=== PATIENT | female | born 1950 | race Caucasian/White ===

== ENCOUNTER 2021-12-14 15:19 | Outpatient (CLI) | payer MEDICARE, BC | END 2021-12-14 15:20 | disposition critical access hospital (66) | LOC: EMS 15:19 | DX: R62.7 Adult failure to thrive (principal); R09.89 Other specified symptoms and signs involving the circulatory and respiratory systems; Z72.89 Other problems related to lifestyle; Z91.89 Other specified personal risk factors, not elsewhere classified | CPT/HCPCS: A0425; A0429 ==

== ENCOUNTER 2021-12-14 15:49 | Emergency (ER) | payer MEDICARE, BC ==
[2021-12-14] MEDS ORDERED: THIAMINE INJ 100 MG, MAGNESIUM SULFATE 2 GM, MULTIVITAMIN 10 ML, FOLIC ACID INJ 1 MG in... IV ONE ×5 (16:01)
--- NOTE | 2021-12-14 16:24 | ED Physician Documentation ---
History of Present Illness - Stated complaint Stated Complaint: FTT - Chief complaint Chief Complaint: General - History obtained from History obtained from: Patient, EMS - Additonal information Additional information: This 71-year-old woman presents by ambulance for concerns about being able to care for herself. Reportedly her family found her today completely disheveled. There was also report the prehospital she mentioned wanting to kill herself. The patient herself says she has no suicidal ideation and just is not taking care of herself well because her dog has been sick and had to be put down yesterday. She admits to drinking and smoking heavily. She states she has no medical problems and does not see a doctor. History is slightly limited because of intoxication. Review of Systems Unable to obtain: Intoxicated PD PAST MEDICAL HISTORY - Present Medications Home Medications: Ambulatory Orders Medication Instructions Recorded Confirmed No Known Home Medications 12/14/21 12/14/21 - Allergies Allergies/Adverse Reactions: Allergies Allergy/AdvReac Type Severity Reaction Status Date / Time No Known Drug Allergies Allergy Verified 12/14/21 16:00 PD ED PE NORMAL - Vitals Vital signs reviewed: Yes - General General: Other (She has a profound smell of both urine and stool, and is very unkempt and dirty. Slightly slow to answer questions. Under the smell of urine and stool is a smell of alcohol as well.) - HEENT HEENT: PERRL, EOMI (With significant nystagmus) - Neck Neck: Supple, no meningeal sign, No bony TTP - Cardiac Cardiac: RRR, No murmur - Respiratory Respiratory: No respiratory distress, Clear bilaterally - Abdomen Abdomen: Normal bowel sounds, Soft, Non tender - Back Back: No CVA TTP, No spinal TTP - Derm Derm: Normal color, Warm and dry - Extremities Extremities: Other (She has cool feet with poor capillary refill suggestive of peripheral vascular disease.) - Neuro Eye Opening: Spontaneous Motor: Obeys Commands Verbal: Confused (Slightly) GCS Score: 14 Results - Vitals Vitals: Vital Signs - 24 hr 12/14/21 16:01 Temperature 36.5 C Heart Rate 68 Respiratory 18 Rate Blood Pressure 151/72 H O2 Saturation 99 Oxygen O2 Source Room air - Labs Labs: Laboratory Tests 12/14/21 12/14/21 12/14/21 16:40 16:40 16:40 WBC 5.7 RBC 4.56 Hgb 15.9 Hct 47.1 H MCV 103.3 H MCH 34.9 H MCHC 33.8 RDW 12.8 Plt Count 194 MPV 8.8 Neut # (Auto) 3.5 Lymph # (Auto) 1.6 [place] # (Auto) 0.4 Eos # (Auto) 0.1 Baso # (Auto) 0.1 Absolute Nucleated RBC 0.00 Nucleated RBC % 0.0 Sodium 140 Potassium 4.3 Chloride 102 Carbon Dioxide 25 Anion Gap 13.0 BUN 20 Creatinine 1.1 H Estimated GFR (MDRD) 49 L Glucose 82 Calcium 9.4 Total Bilirubin 0.5 AST 24 ALT 20 Alkaline Phosphatase 118 Total Protein 8.1 Albumin 4.5 Globulin 3.6 Albumin/Globulin Ratio 1.3 Lipase 36 TSH 1.69 Urine Color Urine Clarity Urine pH Ur Specific [place] Urine Protein Urine Glucose (UA) Urine Ketones Urine Occult Blood Urine Nitrite Urine Bilirubin Urine Urobilinogen Ur Leukocyte Esterase Urine RBC Urine WBC Ur Squamous Epith Cells Urine Bacteria Ur Microscopic Review Urine Culture Comments Salicylates < 6.0 Urine Opiates Screen Ur Oxycodone Screen Urine Methadone Screen Ur Propoxyphene Screen Acetaminophen < 10 L Ur Barbiturates Screen Ur Tricyclics Screen Ur Phencyclidine Scrn Ur Amphetamine Screen U Methamphetamines Scrn U Benzodiazepines Scrn Urine Cocaine Screen U Cannabinoids Screen Ethyl Alcohol 243.6 SARS-CoV-2 (PCR) 12/14/21 12/14/21 16:55 17:25 WBC RBC Hgb Hct MCV MCH MCHC RDW Plt Count MPV Neut # (Auto) Lymph # (Auto) [place] # (Auto) Eos # (Auto) Baso # (Auto) Absolute Nucleated RBC Nucleated RBC % Sodium Potassium Chloride Carbon Dioxide Anion Gap BUN Creatinine Estimated GFR (MDRD) Glucose Calcium Total Bilirubin AST ALT Alkaline Phosphatase Total Protein Albumin Globulin Albumin/Globulin Ratio Lipase TSH Urine Color LIGHT YELLOW Urine Clarity CLOUDY Urine pH 5.5 Ur Specific [place] <=1.005 Urine Protein TRACE Urine Glucose (UA) NEGATIVE Urine Ketones NEGATIVE Urine Occult Blood TRACE-INTA Urine Nitrite POSITIVE H Urine Bilirubin NEGATIVE Urine Urobilinogen 0.2 (NORMAL) Ur Leukocyte Esterase TRACE H Urine RBC 0-5 Urine WBC 6-10 H Ur Squamous Epith Cells RARE Squamous Urine Bacteria Many H Ur Microscopic Review INDICATED Urine Culture Comments INDICATED Salicylates Urine Opiates Screen NEGATIVE Ur Oxycodone Screen NEGATIVE Urine Methadone Screen NEGATIVE Ur Propoxyphene Screen NEGATIVE Acetaminophen Ur Barbiturates Screen NEGATIVE Ur Tricyclics Screen NEGATIVE Ur Phencyclidine Scrn NEGATIVE Ur Amphetamine Screen NEGATIVE U Methamphetamines Scrn NEGATIVE U Benzodiazepines Scrn NEGATIVE Urine Cocaine Screen NEGATIVE U Cannabinoids Screen NEGATIVE Ethyl Alcohol SARS-CoV-2 (PCR) NOT DETECTED PD MEDICAL DECISION MAKING - ED course ED course: 71-year-old woman presents by ambulance because of issues with self-care and she is also intoxicated with alcohol. Family sent along written comments including regarding her threats of suicide prior to arrival although the patient states she is not suicidal here. She was showered and labs were checked which were only notable for blood alcohol of 243. She does have pyuria which likely represents asymptomatic bacteriuria given the lack of specific urinary complaints. Patient is not cooperative with care and does not particularly want to be here. Given the aforementioned issues, will need to stay in the emergency department until sober and likely have DCR evaluate her. Care to the overnight emergency physician at shift change pending sobriety which I expect around 2 AM and DCR evaluation. Departure - Departure Clinical Impression: Alcohol intoxication, Dirty living conditions Condition: Stable Record reviewed to determine appropriate education?: Yes Instructions: ED Alcohol Intoxication
[2021-12-14 16:47] LABS: BASOPHILS # (AUTO) 0.1 10^3/uL (0.0-0.1); BASOPHILS % (AUTO) 1.2 %; EOSINOPHILS # (AUTO) 0.1 10^3/uL (0.0-0.7); EOSINOPHILS % (AUTO) 2.3 %; HCT - HEMATOCRIT 47.1 % (37.0-47.0); HGB - HEMOGLOBIN 15.9 g/dL (12.0-16.0); LYMPHOCYTES # (AUTO) 1.6 10^3/uL (1.5-3.5); LYMPHOCYTES % (AUTO) 27.2 %; MEAN CORPUSCULAR HEMOGLOBIN 34.9 pg (27.0-31.0); MEAN CORPUSCULAR HGB CONC 33.8 g/dL (32.0-36.0); MEAN CORPUSCULAR VOLUME 103.3 fL (81.0-99.0); MEAN PLATELET VOLUME 8.8 fL (7.9-10.8); MONOCYTES # (AUTO) 0.4 10^3/uL (0.0-1.0); MONOCYTES % (AUTO) 7.2 %; NEUTROPHILS # (AUTO) 3.5 10^3/uL (1.5-6.6); NEUTROPHILS % (AUTO) 61.4 %; PLT - PLATELET COUNT 194 10^3/uL (130-450); RED BLOOD COUNT 4.56 10^6/uL (4.20-5.40); RED CELL DISTRIBUTION WIDTH 12.8 % (12.0-15.0); WHITE BLOOD COUNT 5.7 x10^3/uL (4.8-10.8)
[2021-12-14 17:04] LABS: ACETAMINOPHEN < 10 ug/mL (10-30); ALBUMIN 4.5 g/dL (3.2-5.5); ALBUMIN/GLOBULIN RATIO 1.3 (1.0-2.2); ALKALINE PHOSPHATASE 118 IU/L (42-121); ALT ALANINE AMINOTRANSFERASE 20 IU/L (10-60); AST ASPARTATE AMINOTRANSFERASE 24 IU/L (10-42); BILIRUBIN,TOTAL 0.5 mg/dL (0.2-1.0); BUN - BLOOD UREA NITROGEN 20 mg/dL (6-20); CALCIUM 9.4 mg/dL (8.5-10.3); CARBON DIOXIDE - CO2 25 mmol/L (21-32); CHLORIDE 102 mmol/L (101-111); CREATININE 1.1 mg/dL (0.4-1.0); ETOH - ETHANOL 243.6 mg/dL; GFR - MDRD 49 (>89); GLUCOSE 82 mg/dL (70-100); LIPASE 36 U/L (22-51); POTASSIUM 4.3 mmol/L (3.5-5.0); SALICYLATE < 6.0 mg/dL; SODIUM 140 mmol/L (135-145); TOTAL PROTEIN 8.1 g/dL (6.7-8.2)
[2021-12-14 17:29] LABS: MUDS CUTOFF CONCENTRATIONS CUTOFF CONC BELOW:
[2021-12-14 17:36] LABS: BILIRUBIN,URINE NEGATIVE (NEGATIVE); GLUCOSE, URINE (UA) NEGATIVE (NEGATIVE); KETONES,URINE (UA) NEGATIVE (NEGATIVE); LEUKOCYTE ESTERASE, URINE TRACE (NEGATIVE); NITRITE,URINE POSITIVE (NEGATIVE); OCCULT BLOOD,URINE TRACE-INTA (NEGATIVE); PH,URINE 5.5 PH (5.0-7.5); PROTEIN,URINE TRACE mg/dL (NEGATIVE); UROBILINOGEN,URINE 0.2 (NORMAL) E.U./dL (NORMAL)
[2021-12-14 17:48] LABS: CLARITY,URINE CLOUDY (CLEAR)
[2021-12-14 17:49] LABS: BACTERIA,URINE Many /HPF (None Seen); RBC,URINE 0-5 /HPF (0-5); SQUAMOUS EPITHELIAL CELL,UR RARE Squamous (<= Few)
[2021-12-14 17:50] LABS: AMPHETAMINE SCREEN,URINE NEGATIVE (NEGATIVE); BARBITURATE SCREEN,UR NEGATIVE (NEGATIVE); BENZODIAZEPINES SCREEN, URINE NEGATIVE (NEGATIVE); COCAINE SCREEN URINE NEGATIVE (NEGATIVE); METHADONE SCREEN, URINE NEGATIVE (NEGATIVE); METHAMPHETAMINES SCREEN, URINE NEGATIVE (NEGATIVE); OPIATE SCREEN, URINE NEGATIVE (NEGATIVE); OXYCODONE SCREEN, URINE NEGATIVE (NEGATIVE); PROPOXYPHENE SCREEN, URINE NEGATIVE (NEGATIVE); THC CANNABINOID SCREEN, URINE NEGATIVE (NEGATIVE); TRICYCLIC ANTIDEPRESSANT,URINE NEGATIVE (NEGATIVE)
--- NOTE | 2021-12-15 06:10 | ED Physician Documentation ---
ED Addendum - Addendum Addendum: 12/15/21 06:00 71-year-old female presented to the emergency department yesterday evening with intoxication and some statements concerning for suicidal ideation. This morning she is sober and denies any suicidal ideation she does state that her dog was put down yesterday after a bout with liver cancer. She was not expecting her son to come to her house and when he came to her house he found her intoxicated and things were said and she ended up here. 16:57 Electrocardiogram has been done showing a rate of 69 with a sinus rhythm normal axes and intervals no evidence of ischemia. The computer does read lateral ST depression which is not present. There are no prior tracings for comparison. 12/15/21 06:10 12/15/21 06:11 At shift change her care is turned over to the oncoming ED doctor with a social work consult pending with the goal to provide a safety plan for discharge to home. 12/15/21 06:11
--- NOTE | 2021-12-15 14:29 | ED Physician Documentation ---
ED Addendum - Addendum Addendum: 12/15/21 14:29 Social work consulted and feels that the patient may need to be involuntarily detained. DCR will be dispatched. 12/15/21 17:26 DCR Katelynn is reviewing the case. She spoke with the patient and will seek involuntary placement. She is currently exploring if any beds are available today. Results - Vitals Vitals: Vital Signs - 24 hr 12/14/21 12/14/21 12/14/21 16:01 19:59 22:23 Temperature 36.5 C Heart Rate 68 79 95 Respiratory 18 18 16 Rate Blood Pressure 151/72 H 139/80 H 174/88 H O2 Saturation 99 96 95 12/15/21 12/15/21 12/15/21 01:05 03:00 09:00 Temperature 37.2 C Heart Rate 89 86 89 Respiratory 14 16 14 Rate Blood Pressure 152/79 H 150/78 H 123/69 O2 Saturation 95 95 96 12/15/21 13:48 Temperature 36.6 C Heart Rate 77 Respiratory 16 Rate Blood Pressure 148/89 H O2 Saturation 99 Oxygen O2 Source Room air - EKG (time done) 1352 Rate: Rate (enter#) (76) Rhythm: NSR [place]: Normal Intervals: Normal AR QRS: Normal Ischemia: Normal ST segments - Labs Labs: Microbiology 12/14/21 17:25 Urine Culture - Preliminary Urine,Random Escherichia Coli Laboratory Tests 12/14/21 12/14/21 12/14/21 16:40 16:40 16:40 WBC 5.7 RBC 4.56 Hgb 15.9 Hct 47.1 H MCV 103.3 H MCH 34.9 H MCHC 33.8 RDW 12.8 Plt Count 194 MPV 8.8 Neut # (Auto) 3.5 Lymph # (Auto) 1.6 [place] # (Auto) 0.4 Eos # (Auto) 0.1 Baso # (Auto) 0.1 Absolute Nucleated RBC 0.00 Nucleated RBC % 0.0 Sodium 140 Potassium 4.3 Chloride 102 Carbon Dioxide 25 Anion Gap 13.0 BUN 20 Creatinine 1.1 H Estimated GFR (MDRD) 49 L Glucose 82 Calcium 9.4 Total Bilirubin 0.5 AST 24 ALT 20 Alkaline Phosphatase 118 Total Protein 8.1 Albumin 4.5 Globulin 3.6 Albumin/Globulin Ratio 1.3 Lipase 36 TSH 1.69 Urine Color Urine Clarity Urine pH Ur Specific [place] Urine Protein Urine Glucose (UA) Urine Ketones Urine Occult Blood Urine Nitrite Urine Bilirubin Urine Urobilinogen Ur Leukocyte Esterase Urine RBC Urine WBC Ur Squamous Epith Cells Urine Bacteria Ur Microscopic Review Urine Culture Comments Salicylates < 6.0 Urine Opiates Screen Ur Oxycodone Screen Urine Methadone Screen Ur Propoxyphene Screen Acetaminophen < 10 L Ur Barbiturates Screen Ur Tricyclics Screen Ur Phencyclidine Scrn Ur Amphetamine Screen U Methamphetamines Scrn U Benzodiazepines Scrn Urine Cocaine Screen U Cannabinoids Screen Ethyl Alcohol 243.6 SARS-CoV-2 (PCR) 12/14/21 12/14/21 12/15/21 16:55 17:25 05:40 WBC RBC Hgb Hct MCV MCH MCHC RDW Plt Count MPV Neut # (Auto) Lymph # (Auto) [place] # (Auto) Eos # (Auto) Baso # (Auto) Absolute Nucleated RBC Nucleated RBC % Sodium Potassium Chloride Carbon Dioxide Anion Gap BUN Creatinine Estimated GFR (MDRD) Glucose Calcium Total Bilirubin AST ALT Alkaline Phosphatase Total Protein Albumin Globulin Albumin/Globulin Ratio Lipase TSH Urine Color LIGHT YELLOW Urine Clarity CLOUDY Urine pH 5.5 Ur Specific [place] <=1.005 Urine Protein TRACE Urine Glucose (UA) NEGATIVE Urine Ketones NEGATIVE Urine Occult Blood TRACE-INTA Urine Nitrite POSITIVE H Urine Bilirubin NEGATIVE Urine Urobilinogen 0.2 (NORMAL) Ur Leukocyte Esterase TRACE H Urine RBC 0-5 Urine WBC 6-10 H Ur Squamous Epith Cells RARE Squamous Urine Bacteria Many H Ur Microscopic Review INDICATED Urine Culture Comments INDICATED Salicylates Urine Opiates Screen NEGATIVE Ur Oxycodone Screen NEGATIVE Urine Methadone Screen NEGATIVE Ur Propoxyphene Screen NEGATIVE Acetaminophen Ur Barbiturates Screen NEGATIVE Ur Tricyclics Screen NEGATIVE Ur Phencyclidine Scrn NEGATIVE Ur Amphetamine Screen NEGATIVE U Methamphetamines Scrn NEGATIVE U Benzodiazepines Scrn NEGATIVE Urine Cocaine Screen NEGATIVE U Cannabinoids Screen NEGATIVE Ethyl Alcohol < 5.0 SARS-CoV-2 (PCR) NOT DETECTED
[2021-12-15] MEDS ORDERED: NICOTINE 14 MG PATCH TOP STA (16:26)
[2021-12-16 06:38] VITALS: BP 136/79
--- NOTE | 2021-12-16 09:16 | ED Physician Documentation ---
ED Addendum - Addendum Addendum: 12/16/21 09:15 [facility] is here to pickle solution maker the patient. There were no reported problems overnight. She is pleasant with a low affect but interactive than following direction this morning. She is being hospitalized for psychiatric process. Disposition: The patient is transferred to psychiatric facility in stable condition. Diagnoses: 1. Alcohol intoxication with alcohol abuse 2. Poor home condition 3. Self-neglect
== END 2021-12-16 09:20 ==
LOC: EDUNIT# → ED 15:49
DX: R82.81 Pyuria (principal); F10.129 Alcohol abuse with intoxication, unspecified; Y90.8 Blood alcohol level of 240 mg/100 ml or more; Z59.89 Other problems related to housing and economic circumstances; Z91.412 Personal history of adult neglect; Z20.822 Contact with and (suspected) exposure to COVID-19
CPT/HCPCS: 36415; 80053; 80306; 80307; 81001; 83690; 84443; 85025; 87086; 87181; 87635; 93005; 96365; 96366; 99281; 99285; A9270; G0480; J3411; 80320; 80329; 81003

== ENCOUNTER 2022-10-30 16:44 | Outpatient (CLI) | payer MEDICARE | END 2022-10-30 16:45 | disposition EMS.NT | LOC: EMS 16:44 | DX: R29.898 Other symptoms and signs involving the musculoskeletal system (principal) ==

== ENCOUNTER 2023-07-14 13:55 | Outpatient (CLI) | payer MEDICARE | END 2023-07-14 23:59 | disposition short-term general hospital (02) | LOC: EMS 13:55 | DX: R53.1 Weakness (principal); R29.810 Facial weakness; R47.81 Slurred speech | CPT/HCPCS: A0425; A0427 ==